=== PATIENT | female | born 1990 ===

== ENCOUNTER 2018-06-08 22:15 | Emergency (ER) | payer OTHER ==
[2018-06-08 22:21] VITALS: BMI 21.2
[2018-06-08 22:24] VITALS: BP 129/84; PULSE 63; RESP 18; TEMP 98.4; O2SAT 99
--- NOTE | 2018-06-08 22:51 | ED PDOC ---
HPI: Skin/Bite Injury Time Seen by Provider: 06/08/18 22:28 Chief Complaint (Nursing): Abnormal Skin Integrity Chief Complaint (Provider): Facial Laceration History Per: Patient History/Exam Limitations: no limitations Onset/Duration Of Symptoms: Mins (just RIPSAW MATCHER) Current Symptoms Are (Timing): Still Present Location Of Injury: Left: Head Additional Complaint(s): Patient is a 28 year old female who presents to the ED for evaluation of a laceration to the left forehead/eyebrow. Patient reports that just RIPSAW MATCHER she was laying in bed when her phone fell from the shelf above her ~2feet, striking her forehead/eyebrow. Patient took no medication RIPSAW MATCHER. Tetanus is UTD. No other complaints. Denies headache, LOC, dizziness, N/V, visual changes. Per boyfriend at bedside, patient is acting normally. PMD: in [facility] 05/30/18 Past Medical History Reviewed: Historical Data, Nursing Documentation, Vital Signs Vital Signs: Last Vital Signs Temp 98.4 F 06/08/18 22:21 Pulse 63 06/08/18 22:21 Resp 18 06/08/18 22:21 BP 129/84 06/08/18 22:21 Pulse Ox 99 06/08/18 22:21 - Medical History PMH: No Chronic Diseases - Surgical History Other surgeries: breast augmentation - Family History Family History: States: Unknown Family Hx - Immunization History Hx Tetanus Toxoid Vaccination: Yes (UTD) - Allergies Allergies/Adverse Reactions: Allergies Allergy/AdvReac Type Severity Reaction Status Date / Time No Known Allergies Allergy Verified 06/08/18 22:21 Review of Systems ROS Statement: Except As Marked, All Systems Reviewed And Found Negative Skin: Positive for: Other (left forehead laceration) Physical Exam - Reviewed Nursing Documentation Reviewed: Yes Vital Signs Reviewed: Yes - Physical Exam Appears: Positive for: Well, Non-toxic, No Acute Distress (Resting comfortably.) Head Exam: Positive for: NORMOCEPHALIC ((-) facial bone tenderness) Skin: Positive for: Normal Color ((+) .75cm linear, superficial vertically oriented laceration to mid left eyebrow extending into forehead), Warm, Dry Eye Exam: Positive for: EOMI, PERRL. Negative for: Periorbital swelling, Periorbital tenderness, Conjunctival injection ENT: Positive for: Pharynx Is (clear, uvula midline) Neck: Positive for: Painless ROM, Supple Cardiovascular/Chest: Positive for: Regular Rate, Rhythm Respiratory: Positive for: Normal Breath Sounds (Respirations even and nonlabored. ) Extremity: Positive for: Normal ROM. 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 Benefits of both wound closure measures discussed in detail. Patient opts for Dermabond closure. -Patient declined pain medication. 2340 Laceration repair performed by Baljeet ELENA with Dermabond. Patient tolerated procedure well. No complications. Educated on adhesive wound care. Educated on tips to reduce scarring. On re-evaluation, patient reports improvement of symptoms. On exam, patient remains AAOx3, in no acute distress. Vitals stable. Lab/Diagnostic results d/w the patient in great detail. Diagnosis of facial laceration d/w the patient. Based on history, exam and diagnostic results, plan will be for outpatient follow up with PMD. Plastics referral provided. Patient instructed to follow-up with pmd / referral provided / the clinic in 1- 2 days without fail. Return to the emergency room at any time for any new or worsening symptoms. Patient states she fully agrees with and understands discharge instructions. States that she agrees with the plan and disposition. Verbalized and repeated discharge instructions and plan. I have given the patient opportunity to ask any additional questions. Disposition - Clinical Impression Clinical Impression: Facial laceration - Patient ED Disposition Is Patient to be Admitted: No Counseled Patient/Family Regarding: Studies Performed, Diagnosis, Need For Followup, Rx Given - Disposition Referrals: Alanna Ball MD [Medical Doctor] - Disposition: Routine/Home Disposition Time: 23:40 Condition: STABLE Additional Instructions: PLASTICS REFERRAL PROVIDED FOR FOLLOW UP. The emergency medical care you received today was directed at your acute symptoms. If you were prescribed any medication, please fill it and take as directed. It may take several days for your symptoms to resolve. Return to the Emergency Department if your symptoms worsen, do not improve, or if you have any other problems. Please contact your doctor in 2 days for re-evaluation and follow up / or call one of the physicians/clinics you have been referred to that are listed on the Patient Visit Information form that is included in your discharge packet. Bring any paperwork you were given at discharge with you along with any medications you are taking to your follow up visit. Our treatment cannot replace ongoing medical care by a primary care provider (PCP) outside of the emergency department. Instructions: Laceration Repair With Glue (DC), Wound Care (DC) Forms: [employer] (Yi) Print Language: DJIBOUTIAN - POA Present On Arrival: None
== END 2018-06-09 00:28 | disposition home or self-care (01) ==
LOC: H.ER 22:15
DX: S01.112A Laceration without foreign body of left eyelid and periocular area, initial encounter (principal); W20.8XXA Other cause of strike by thrown, projected or falling object, initial encounter